=== PATIENT | male | born 1995 | race Two or more races ===

== ENCOUNTER 2021-07-24 17:38 | Emergency (ER) | payer MEDICAID, OTHER ==
[~2021-07-24] VITALS: Ht 175.3 cm; Wt 113.4 kg
[2021-07-24] MEDS ORDERED: KETOROLAC TROMETH 60MG/2ML VIAL IM ONE (18:00)
[2021-07-24] MEDS ORDERED: METH750T22 PO (18:02)
[2021-07-24] MEDS ORDERED: IBUP800T27 PO (18:02)
[2021-07-24 18:29] VITALS: BP 154/89
== END 2021-07-24 18:28 | disposition home or self-care (01) ==
LOC: ER 17:38
DX: S46.911A Strain of unspecified muscle, fascia and tendon at shoulder and upper arm level, right arm, initial encounter (principal); W18.09XA Striking against other object with subsequent fall, initial encounter; Y93.89 Activity, other specified; Y92.89 Other specified places as the place of occurrence of the external cause; Y99.8 Other external cause status
CPT/HCPCS: 96372; 99283; J1885